=== PATIENT | male | born 1935 | race Caucasian/White ===

== ENCOUNTER 2017-06-01 07:44 | Day surgery (SDC) | payer MEDICARE, OTHER ==
[2017-05-27 15:39] VITALS: BMI 34.0
[~2017-06-01 07:44] MED LIST: LACTATED RINGERS 1,000 ML IV SCH; MOXIFLOXACIN HCL 0.5% DROPS 3 ML BTL OP ONE; TETRACAINE 0.5% OPHTH (PF) DROPS 4 ML BTL OP ONE; TIMOLOL 0.5% OPHTH SOLN (PF) 0.2 ML DROPERETTE OP ONE
[2017-06-01] MEDS: CYCLOPENTOLATE 1% OPHTH SOLN 2 ML BTL OP ONE ×2 (08:27→08:35)
[2017-06-01] MEDS: PHENYLEPHRINE 2.5% OPHTH DRP 2ML OP NR ×3 (08:28→08:37)
[2017-06-01] MEDS ORDERED: LIDOCAINE 1% 20 ML VIAL (10MG/ML) FOR IV START INTRADERMA ONE (08:55)
[2017-06-01 09:04] VITALS: TEMP 97.4
[2017-06-01 09:07] LABS: Glucose,Whole Blood 148 mg/dL (75-99)
[2017-06-01] MEDS ORDERED: MIDAZOLAM 2 MG/2 ML VIAL ONE (09:11)
[2017-06-01] MEDS ORDERED: fentaNYL (PF) 50 MCG/ML 2 ML AMP ONE (09:11)
[2017-06-01] MEDS ORDERED: BALANCED SALT IRRIG SOLN COMB2 15 ML IRRIG.SOLN INTRAOCULA ONE (09:16)
[2017-06-01] MEDS ORDERED: HYALURONATE SODIUM INTRAOCULAR 1 EACH SYRINGE (12MG/ML) INTRAOCULA ONE (09:16)
[2017-06-01] MEDS ORDERED: EPINEPHrine (PF) 1 MG/ML AMP MISCELLANE ONE (09:17)
[2017-06-01] MEDS ORDERED: LIDOCAINE 1% (PF) 10MG/ML VIAL SQ ONE (09:17)
[2017-06-01] MEDS ORDERED: EPINEPHrine (PF) 1 MG/ML AMP SQ ONE (09:17)
[2017-06-01] MEDS ORDERED: EPINEPHrine (PF) 0.3 ML in BALANCED SALT IRRIG SOLN COMB2 500 ML IRRIGATION ONE (09:25)
--- NOTE | 2017-06-01 09:43 | P.OP ---
Date of Procedure: 06/01/17 Preoperative Diagnosis: NS & CS & PSC Postoperative Diagnosis: same Procedure(s) Performed: PIOL, OS Implants: PCB00 23.00 Anesthesia: MAC Surgeon: Fausto Christensen Estimated Blood Loss (ml): 0 Pathology: none sent Condition: stable Disposition: same day Indications for Procedure: blurry vision Operative Findings: No complications Description of Procedure:
[2017-06-01 09:46] VITALS: RESP 18
[2017-06-01 10:09] VITALS: BP 129/60; PULSE 67
--- NOTE | 2017-06-02 13:47 | OP ---
OPERATIVE REPORT Date of Surgery: DATE OF SURGERY: 01 June 2017. PROCEDURE: Phacoemulsification of cataract and intraocular lens implant of the left eye. PREOPERATIVE DIAGNOSES: 1. Nuclear sclerosis. 2. Cortical sclerosis. 3. Posterior subcapsular cataract. POSTOPERATIVE DIAGNOSES: 1. Nuclear sclerosis. 2. Cortical sclerosis. 3. Posterior subcapsular cataract. 4. Intraoperative floppy iris syndrome. SURGEON: Dr. Fausto Christensen. ANESTHESIA: Topical. ESTIMATED BLOOD LOSS: None. SPECIMEN TAKEN: None. NARRATIVE: After obtaining the appropriate consent, the patient was brought to the operating room. There he was placed on cardiac monitoring, prepped and draped in the usual sterile manner. He was approached from his left temporal side and at the 5 o'clock position, a 1.1 mm stab blade was used to create a paracentesis port. Through this opening, a solution consisting of 1 part balanced salt solution, 1 part 1% Xylocaine MPF and 2 parts epinephrine 1:1000 MPF was instilled into the anterior chamber. It was realized at this point in time that further enlargement of the small pupil of about 4.5 mm was not going to open any further. Through the paracentesis, Amvisc was used to stabilize the anterior chamber. At the 3 o'clock position, a 2.5 mm keratome was used to create a self-sealing corneal flap incision. Through this opening, a Malyugin ring 7 mm in size was inserted on the pupil sphincter without difficulty. A cystatome was then introduced to begin a continuous tear capsulorrhexis which was completed using the Utrata forceps. Hydrodissection and hydrodelineation of the lens was accomplished with a balanced salt solution. Phacoemulsification lens utilizing phaco chop was accomplished in 26.05 seconds at 12% power. Additional lidocaine and epinephrine solution was instilled into the anterior chamber. This was followed by removal of the remaining cortex under irrigation and aspiration along with careful polishing of the posterior capsule in the capsule vacuum mode. Additional Amvisc was used to stabilize the capsular bag and an LATONYA PCB00 23.0 diopter posterior chamber intraocular lens was inserted into the bag without difficulty. The Malyugin ring was disinserted from the nasal side of the pupil and removed through the temporal incision. Irrigation and aspiration of the remaining viscoelastic from in and around the intraocular lens was accomplished without difficulty. The eye was then brought to normal intraocular pressures through the paracentesis port with the balanced salt solution. The eye was checked for watertight integrity. He then received 2 drops of 0.5% timolol followed by 2 drops of moxifloxacin and was lightly patched and shielded in the usual manner. There were no complications from the procedure. He tolerated the procedure well. He was returned to the outpatient recovery in good condition. MMADAM / ALONN: [id number] /
== END 2017-06-01 10:30 | disposition home or self-care (01) ==
LOC: OR 07:44
PROVIDERS: ATTEND Ophthalmology
DX: H25.12 Age-related nuclear cataract, left eye (principal); H25.012 Cortical age-related cataract, left eye; H25.042 Posterior subcapsular polar age-related cataract, left eye; H21.81 Floppy iris syndrome; E11.36 Type 2 diabetes mellitus with diabetic cataract; H52.13 Myopia, bilateral; H52.223 Regular astigmatism, bilateral; H52.4 Presbyopia; N40.0 Benign prostatic hyperplasia without lower urinary tract symptoms; Z79.84 Long term (current) use of oral hypoglycemic drugs; Z79.82 Long term (current) use of aspirin; Z79.899 Other long term (current) drug therapy; Z87.891 Personal history of nicotine dependence
CPT/HCPCS: 66982; C1780; J2250; J0171; J3010; J2001

== ENCOUNTER 2022-03-15 18:42 | Observation (INO) | payer MEDICARE ==
[2022-03-15 19:49] LABS: Glucose,Whole Blood 157 mg/dL (75-99)
--- NOTE | 2022-03-15 19:49 | ED ---
General Adult HPI - General Chief complaint: Chest Pain Stated complaint: ABN EKG Time Seen by Provider: 03/15/22 19:34 Source: patient, RN notes reviewed, old records reviewed Mode of arrival: ambulatory Limitations: no limitations - History of Present Illness Initial comments: 86-year-old male presents to the emergency Department with abnormal EKG and symptoms of chest pain and dizziness. Symptoms have been present for the past several days. He was seen by his primary care physician and sent to the emergency department for evaluation. He's had a vague chest discomfort, left- sided. And a sharp right upper chest pain which is worse with movement. He has had some mild dyspnea. No vomiting. He's had some nausea. He has no prior history of CAD. No fever. No cough. - Related Data Home Medications Medication Instructions Recorded Confirmed Aspirin 81 mg PO DAILY 05/27/17 06/01/17 Cholecalciferol [Vitamin D3] 50,000 unit PO WEEKLY 05/27/17 06/01/17 Naproxen Sodium [Aleve] 220 mg PO BID PRN 05/27/17 06/01/17 Tamsulosin HCl [Flomax] 0.4 mg PO DAILY 05/27/17 06/01/17 glipiZIDE [Glucotrol XL] 20 mg PO DAILY 05/27/17 06/01/17 metFORMIN HCL [Glucophage] 500 mg PO DAILY 05/27/17 06/01/17 Allergies Allergy/AdvReac Type Severity Reaction Status Date / Time No Known Allergies Allergy Verified 03/15/22 19:09 Review of Systems ROS Statement: Those systems with pertinent positive or pertinent negative responses have been documented in the HPI. ROS Other: All systems not noted in ROS Statement are negative. Past Medical History Past Medical History: Cancer, Diabetes Mellitus, Eye Disorder, Osteoarthritis (OA), Prostate Disorder Additional Past Medical History / Comment(s): hx. of cancerous colon polyp in 1999-didn't require surgery, has enlarged spleen- monitoring History of Any Multi-Drug Resistant Organisms: None Reported Past Surgical History: Orthopedic Surgery Additional Past Surgical History / Comment(s): colonoscopies, right cataract removed, repair of fx. right shoulder Past Anesthesia/Blood Transfusion Reactions: No Reported Reaction Past Psychological History: No Psychological Hx Reported Past Alcohol Use History: None Reported Past Drug Use History: None Reported - Past Family History Mother Family Medical History: No Reported History General Exam Limitations: no limitations General appearance: alert, in no apparent distress Head exam: Present: atraumatic, normocephalic Eye exam: Present: normal appearance, PERRL ENT exam: Present: normal exam Neck exam: Present: normal inspection. Absent: tenderness, meningismus Respiratory exam: Present: normal lung sounds bilaterally. Absent: respiratory distress, wheezes Cardiovascular Exam: Present: regular rate, normal rhythm GI/Abdominal exam: Present: soft. Absent: distended, tenderness, guarding, rebound Extremities exam: Present: normal inspection, normal capillary refill. Absent: pedal edema Neurological exam: Present: alert, oriented X3, CN II-XII intact. Absent: motor sensory deficit Psychiatric exam: Present: normal affect, normal mood Skin exam: Present: warm, dry, intact. Absent: cyanosis, diaphoretic Course Vital Signs 03/15/22 19:04 Temperature 98.6 F Pulse Rate 69 Respiratory 20 Rate Blood Pressure 122/63 O2 Sat by Pulse 97 Oximetry EKG Findings - EKG Comments: EKG Findings:: EKG: Sinus rhythm with first-degree AV block, intraventricular conduction delay rate of 69, UT interval 233, QRS duration 126, QTC 4:[address] segment elevation. Medical Decision Making - Medical Decision Making 86-year-old male who had presented from the primary care office with chest pain, lightheadedness. EKG is abnormal in the emergency department without an old EKG for comparison. He has an intraventricular conduction delay and first- degree AV block no ST segment elevation. Laboratory testing in the emergency Department is unremarkable. Chest x-rays negative for acute cardio pulmonary disease. Patient is given an aspirin. He would benefit from serial cardiac enzymes and telemetry. Case discussed with Dr. Keen, who will admit. - Lab Data Result diagrams: 03/15/22 19:50 03/15/22 19:50 Lab Results 03/15/22 03/15/22 03/15/22 Range/Units 19:46 19:50 19:50 WBC 8.1 (3.8-10.6) k/uL RBC 4.53 (4.30-5.90) m/uL Hgb 14.1 (13.0-17.5) gm/dL Hct 42.4 (39.0-53.0) % MCV 93.6 (80.0-100.0) fL MCH 31.0 (25.0-35.0) pg MCHC 33.2 (31.0-37.0) g/dL RDW 14.3 (11.5-15.5) % Plt Count 158 (150-450) k/uL MPV 7.4 Neutrophils % 75 % Lymphocytes % 18 % Monocytes % 5 % Eosinophils % 1 % Basophils % 0 % Neutrophils # 6.1 (1.3-7.7) k/uL Lymphocytes # 1.4 (1.0-4.8) k/uL Monocytes # 0.4 (0-1.0) k/uL Eosinophils # 0.0 (0-0.7) k/uL Basophils # 0.0 (0-0.2) k/uL Poikilocytosis Slight PT 11.2 (9.0-12.0) sec INR 1.0 (<1.2) APTT 28.1 (22.0-30.0) sec Sodium (137-145) mmol/L Potassium (3.5-5.1) mmol/L Chloride (98-107) mmol/L Carbon Dioxide (22-30) mmol/L Anion Gap mmol/L BUN (9-20) mg/dL Creatinine (0.66-1.25) mg/dL Est GFR (CKD-EPI)AfAm (>60 ml/min/1.73 sqM) Est GFR (CKD-EPI)NonAf (>60 ml/min/1.73 sqM) Glucose (74-99) mg/dL POC Glucose (mg/dL) 157 H (75-99) mg/dL POC Glu Baller Tender ID RondaNanoMarie Calcium (8.4-10.2) mg/dL Magnesium (1.6-2.3) mg/dL Total Bilirubin (0.2-1.3) mg/dL AST (17-59) U/L ALT (4-49) U/L Alkaline Phosphatase (38-126) U/L Troponin I (0.000-0.034) ng/mL Total Protein (6.3-8.2) g/dL Albumin (3.5-5.0) g/dL Lipase (23-300) U/L 03/15/22 03/15/22 Range/Units 19:50 19:50 WBC (3.8-10.6) k/uL RBC (4.30-5.90) m/uL Hgb (13.0-17.5) gm/dL Hct (39.0-53.0) % MCV (80.0-100.0) fL MCH (25.0-35.0) pg MCHC (31.0-37.0) g/dL RDW (11.5-15.5) % Plt Count (150-450) k/uL MPV Neutrophils % % Lymphocytes % % Monocytes % % Eosinophils % % Basophils % % Neutrophils # (1.3-7.7) k/uL Lymphocytes # (1.0-4.8) k/uL Monocytes # (0-1.0) k/uL Eosinophils # (0-0.7) k/uL Basophils # (0-0.2) k/uL Poikilocytosis PT (9.0-12.0) sec INR (<1.2) APTT (22.0-30.0) sec Sodium 138 (137-145) mmol/L Potassium 4.1 (3.5-5.1) mmol/L Chloride 108 H (98-107) mmol/L Carbon Dioxide 23 (22-30) mmol/L Anion Gap 7 mmol/L BUN 17 (9-20) mg/dL Creatinine 1.01 (0.66-1.25) mg/dL Est GFR (CKD-EPI)AfAm 78 (>60 ml/min/1.73 sqM) Est GFR (CKD-EPI)NonAf 67 (>60 ml/min/1.73 sqM) Glucose 157 H (74-99) mg/dL POC Glucose (mg/dL) (75-99) mg/dL POC Glu Baller Tender ID Calcium 9.0 (8.4-10.2) mg/dL Magnesium 2.0 (1.6-2.3) mg/dL Total Bilirubin 0.7 (0.2-1.3) mg/dL AST 24 (17-59) U/L ALT 19 (4-49) U/L Alkaline Phosphatase 103 (38-126) U/L Troponin I <0.012 (0.000-0.034) ng/mL Total Protein 7.0 (6.3-8.2) g/dL Albumin 3.9 (3.5-5.0) g/dL Lipase 115 (23-300) U/L Disposition Clinical Impression: Chest pain Disposition: ADMITTED IP TO THIS HOSP Condition: Stable Is patient prescribed a controlled substance at d/c from ED?: No Referrals: Siva Ren MD [Primary Care Provider] - 1-2 days Time of Disposition: 21:35
[2022-03-15 20:16] LABS: Basophils % (A) 0 %; Eosinophils % (A) 1 %; HCT 42.4 % (39.0-53.0); HGB 14.1 gm/dL (13.0-17.5); Lymphocytes # (A) 1.4 k/uL (1.0-4.8); Lymphocytes % (A) 18 %; MCHC 33.2 g/dL (31.0-37.0); MCV 93.6 fL (80.0-100.0); Mean Platelet Volume 7.4; Monocytes # (A) 0.4 k/uL (0-1.0); Monocytes % (A) 5 %; Neutrophils # (A) 6.1 k/uL (1.3-7.7); Neutrophils % (A) 75 %; Platelet Count 158 k/uL (150-450); Poikilocytosis Slight; RBC 4.53 m/uL (4.30-5.90); RDW 14.3 % (11.5-15.5); WBC 8.1 k/uL (3.8-10.6)
[2022-03-15 20:26] LABS: Albumin 3.9 g/dL (3.5-5.0); Potassium 4.1 mmol/L (3.5-5.1); Total Bilirubin 0.7 mg/dL (0.2-1.3)
[2022-03-15 20:29] LABS: Partial Thromboplastin Time 28.1 sec (22.0-30.0); Prothrombin Time 11.2 sec (9.0-12.0)
--- NOTE | 2022-03-15 20:58 | XR ---
EXAMINATION TYPE: XR chest 2V DATE OF EXAM: 03/15/2022 8:19 PM COMPARISON: None TECHNIQUE: XR chest 2V Frontal and lateral views of the chest. CLINICAL INDICATION:Male, 86 years old with history of Chest Pain; FINDINGS: Lungs/Pleura: Low lung volumes are present. There is no evidence of pleural effusion, focal consolida tion, or pneumothorax. Pulmonary vascularity: Unremarkable. Heart/mediastinum: Cardiomediastinal silhouette is unremarkable. Musculoskeletal: No acute osseous pathology. Dictation screw within the distal clavicle on the right. IMPRESSION: No acute cardiopulmonary disease/process.
[2022-03-15] MEDS ORDERED: ASPIRIN 325 MG TAB PO STA (21:32)
[2022-03-15] MEDS ORDERED: NALOXONE 0.4 MG/ML 1 ML VIAL IV PRN (21:32)
[2022-03-16] MEDS ORDERED: ATORVASTATIN 80 MG TAB PO SCH (01:14)
--- NOTE | 2022-03-16 01:14 | P.HPIM ---
History of Present Illness H&P Date: 03/15/22 The patient is an 86-year-old male with a PMH of type II DM and BPH who presents to the emergency room with complaints of chest discomfort, abdominal discomfort, and abnormal EKG. The patient reports that over the past 1-2 weeks, he has had a left-sided vague chest discomfort, with occasional bloating and heartburn, unable to quantify, with no alleviating her excess pitting features. He also reports pleuritic right-sided chest discomfort over the past 3-4 days without nausea, diaphoresis, palpitations. He reports mild exertional dyspnea. Denies cough, fever, chills, abdominal pain or diarrhea. EKG reveals sinus rhythm with first-degree AV block with a left anterior fascicular block and LVH at 69 bpm. Chest x-ray was unremarkable. Laboratory evaluation was remarkable for troponin of less than 0.012. Review of systems: Pertinent positives and negatives as discussed in HPI, a complete review of systems was performed and all other systems are negative. Physical examination: General: non toxic, no distress, appears at stated age, obese Derm: no unusual rashes/lesions, warm Head: atraumatic, normocephalic, symmetric Eyes: EOMI, no lid lag, anicteric sclera, pupils equal round reactive to light ENT: Nose and ears atraumatic Neck: No cervical lymphadenopathy, trachea midline, supple Mouth: no lip lesion, mucus membranes moist Cardiovascular: S1S2 reg, no murmur, positive dorsalis pedis pulse bilateral, no edema Lungs: CTA bilateral, no rhonchi, no rales, no accessory muscle use Abdominal: soft, nontender to palpation, no guarding Ext: muscle strength 5 out of 5 in all 4 extremities grossly, no gross muscle atrophy, no contractures, Neuro: CN II-XI grossly intact, no gross focal neuro deficits Psych: Alert, oriented, appropriate affect Assessment/plan Chest pain, rule out ACS -Cardiology consult -Cardiac monitoring -Trend troponin -Aspirin, statin Chronic conditions: Type II DM, BPH -Insulin sliding scale blood glucose monitoring -Continue with home meds DVT prophylaxis -Heparin subcu The patient is admitted with an anticipated less than 2 midnight stay for evaluation of chest pain. CODE STATUS: Full Code Discussed with: Patient Anticipated discharge date: in am Anticipated discharge place: Home Past Medical History Past Medical History: Cancer, Diabetes Mellitus, Eye Disorder, Osteoarthritis (OA), Prostate Disorder Additional Past Medical History / Comment(s): hx. of cancerous colon polyp in 1999-didn't require surgery, has enlarged spleen- monitoring History of Any Multi-Drug Resistant Organisms: None Reported Past Surgical History: Orthopedic Surgery Additional Past Surgical History / Comment(s): colonoscopies, right cataract removed, repair of fx. right shoulder Past Anesthesia/Blood Transfusion Reactions: No Reported Reaction Past Psychological History: No Psychological Hx Reported Smoking Status: Former smoker Past Alcohol Use History: None Reported Additional Past Alcohol Use History / Comment(s): quit drinking in 1982, quit smoking 35 yrs. ago, on & off smoked for 10 yrs. Past Drug Use History: None Reported - Past Family History Mother Family Medical History: Diabetes Mellitus Medications and Allergies Home Medications Medication Instructions Recorded Confirmed Type Tamsulosin HCl [Flomax] 0.4 mg PO HS 05/27/17 03/15/22 History glipiZIDE [Glucotrol XL] 20 mg PO DAILY 05/27/17 03/15/22 History Ergocalciferol (Vitamin D2) 1,250 mcg PO YU 03/15/22 03/15/22 History [Drisdol (50,000 Iu)] Allergies Allergy/AdvReac Type Severity Reaction Status Date / Time No Known Allergies Allergy Verified 03/15/22 21:34 Physical Exam Vitals: Vital Signs Temp Pulse Pulse Resp BP BP Pulse Ox 03/15/22 22:57 98.0 F 65 20 165/71 100 03/15/22 19:04 98.6 F 69 20 122/63 97 Intake and Output 03/15/22 03/15/22 03/16/22 14:59 22:59 06:59 Other: Weight 105.687 kg Results CBC & Chem 7: 03/15/22 19:50 03/15/22 19:50 Labs: Abnormal Lab Results - Last 24 Hours (Table) 03/15/22 03/15/22 Range/Units 19:46 19:50 Chloride 108 H (98-107) mmol/L Glucose 157 H (74-99) mg/dL POC Glucose (mg/dL) 157 H (75-99) mg/dL Thrombosis Risk Factor Assmnt - Choose All That Apply Each Factor Represents 1 point: Obesity (BMI >25) Each Risk Factor Represents 3 Points: Age 75 years or older Thrombosis Risk Factor Assessment Total Risk Factor Score: 4 Thrombosis Risk Factor Assessment Level: Moderate Risk
[2022-03-16 07:21] LABS: Glucose,Whole Blood 129 mg/dL (75-99)
[2022-03-16 07:40] VITALS: BP 131/74; PULSE 61; RESP 18; TEMP 97.9
[2022-03-16] MEDS ORDERED: HEPARIN SODIUM,PORCINE/PF 5,000 UNIT/0.5 ML SYRINGE SQ SCH (08:00)
[2022-03-16] MEDS ORDERED: CAFFEINE CITRATE 60 MG/3 ML VIAL IV PRN (08:34)
[2022-03-16] MEDS ORDERED: AMINOPHYLLINE 500 MG/20 ML VIAL IV PRN (08:34)
[2022-03-16] MEDS ORDERED: REGADENOSON 0.4 MG/5 ML SYRINGE IV PRN (08:34)
[2022-03-16] MEDS ORDERED: SODIUM CHLORIDE 0.9% 1,000 ML IV STA (08:35)
--- NOTE | 2022-03-16 09:33 | P.CRDCN ---
History of Present Illness History of present illness: This is a 86 year old male with a past medical history of Diabetes and BPH. 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 We have been asked to see in consultation for chest pain. Patient presents to the ER sent in from his PCP secondary to chest pain and abnormal EKG. He states for about 1 week has been having left sided pressure and tightness, with associated shortness of breath, bilateral arm numbness and tingling. He states it comes and goes, he has been having these episodes every day for the past week. He has some relief with aspirin. His shortness of breath is aggravated by activity. He denies any palpitations, lightheadedness, dizziness, diaphoresis, nausea or vomiting. He denies any history of CAD, KS, Stroke, hypertension. Quit smoking and drinking alcohol 40 years ago. His brother did have a KS was 90. Patient seen and examined at bedside, his chest pain has resolved. He is asymptomatic at this time. DIAGNOSTICS EKG reveals sinus rhythm, first degree AV block, intraventricular conduction delay, LVH, T-wave inversions in lead aVL. No acute ST or T-wave abnormalities. Repeat EKG this morning revealed sinus rhythm with left bundle branch block. No prior EKGs to compare. Telemetry tracings indicate sinus rhythm, heart rate in the 50s-60s Chest xray no acute cardiopulmonary process Laboratory reviewed, CBC unremarkable, troponin negative 3, sodium 138, potassium 4.1, BUN 17, serum creatinine 1.0, magnesium 2.0. Current home medications include glipizide, Flomax, vitamin D REVIEW OF SYSTEMS At the time of my exam: CONSTITUTIONAL: Denies fever or chills. CARDIOVASCULAR: Denies chest pain, shortness of breath, orthopnea, PND or palpitations. RESPIRATORY: Denies cough. GASTROINTESTINAL: Denies abdominal pain, diarrhea, constipation, nausea or vomiting. MUSCULOSKELETAL: Denies myalgias. NEUROLOGIC: Denies numbness, tingling, headache or weakness. ENDOCRINE: Denies fatigue, weight change, polydipsia or polyurina. GENITOURINARY: Denies burning, hematuria or urgency with micturation. HEMATOLOGIC: Denies history of anemia or bleeding. PHYSICAL EXAMINATION Blood pressure 131/74, heart rate 61, afebrile, saturations 100% on room air CONSTITUTIONAL: No apparent distress. HEENT: Head is normocephalic. Pupils are equal, round. Sclerae anicteric. Mucous membranes of the mouth are moist. No JVD. No carotid bruit. CHEST EXAMINATION: Lungs are clear to auscultation. No chest wall tenderness is noted on palpation or with deep breathing. HEART EXAMINATION: Regular rate and rhythm. S1, S2 heard. Systolic murmur at apex 1/6. No gallops or rub. ABDOMEN: Soft, nontender. Positive bowel sounds. EXTREMITIES: 2+ peripheral pulses, no lower extremity edema and no calf tenderness. SKIN: warm, dry NEUROLOGIC EXAMINATION: Patient is awake, alert and oriented x3. ASSESSMENT Chest pain, atypical, acute coronary syndrome has been ruled out Type 2 diabetes BPH PLAN An acute coronary event has been ruled out with no EKG evidence of ischemia and negative cardiac enzymes. Obtain 2D echocardiogram and doppler study to assess cardiac structure and function. Perform Lexiscan stress test to assess for stress induced cardiac ischemia. If abnormal will consider and discuss coronary angiography. Stress test is negative okay to discharge from cardiology perspective, and follow up outpatient. Thank you kindly for this consultation. Nurse practitioner note has been reviewed by physician. Signing provider agrees with the documented findings, assessment, and plan of care. Past Medical History Past Medical History: Cancer, Diabetes Mellitus, Eye Disorder, Osteoarthritis (OA), Prostate Disorder Additional Past Medical History / Comment(s): hx. of cancerous colon polyp in 1999-didn't require surgery, has enlarged spleen- monitoring History of Any Multi-Drug Resistant Organisms: None Reported Past Surgical History: Orthopedic Surgery Additional Past Surgical History / Comment(s): colonoscopies, right cataract removed, repair of fx. right shoulder Past Anesthesia/Blood Transfusion Reactions: No Reported Reaction Past Psychological History: No Psychological Hx Reported Smoking Status: Former smoker Past Alcohol Use History: None Reported Additional Past Alcohol Use History / Comment(s): quit drinking in 1982, quit smoking 35 yrs. ago, on & off smoked for 10 yrs. Past Drug Use History: None Reported - Past Family History Mother Family Medical History: Diabetes Mellitus Medications and Allergies Home Medications Medication Instructions Recorded Confirmed Type Tamsulosin HCl [Flomax] 0.4 mg PO HS 05/27/17 03/15/22 History glipiZIDE [Glucotrol XL] 20 mg PO DAILY 05/27/17 03/15/22 History Ergocalciferol (Vitamin D2) 1,250 mcg PO YU 03/15/22 03/15/22 History [Drisdol (50,000 Iu)] Allergies Allergy/AdvReac Type Severity Reaction Status Date / Time No Known Allergies Allergy Verified 03/15/22 21:34 Physical Exam Vitals: Vital Signs Temp Pulse Pulse Resp BP BP Pulse Ox 03/16/22 07:00 97.9 F 61 18 131/74 100 03/16/22 02:10 97.7 F 62 20 116/54 99 03/15/22 22:57 98.0 F 65 20 165/71 100 03/15/22 19:04 98.6 F 69 20 122/63 97 Intake and Output 03/15/22 03/16/22 03/16/22 22:59 06:59 14:59 Other: Voiding Method Toilet # Voids 1 Weight 105.687 kg Results 03/15/22 19:50 03/15/22 19:50 Cardiac Enzymes 03/15/22 03/15/22 03/16/22 Range/Units 19:50 19:50 00:16 AST 24 (17-59) U/L Troponin I <0.012 <0.012 (0.000-0.034) ng/mL 03/16/22 Range/Units 02:45 AST (17-59) U/L Troponin I <0.012 (0.000-0.034) ng/mL Coagulation 03/15/22 Range/Units 19:50 PT 11.2 (9.0-12.0) sec APTT 28.1 (22.0-30.0) sec CBC 03/15/22 Range/Units 19:50 WBC 8.1 (3.8-10.6) k/uL RBC 4.53 (4.30-5.90) m/uL Hgb 14.1 (13.0-17.5) gm/dL Hct 42.4 (39.0-53.0) % Plt Count 158 (150-450) k/uL Comprehensive Metabolic Panel 03/15/22 Range/Units 19:50 Sodium 138 (137-145) mmol/L Potassium 4.1 (3.5-5.1) mmol/L Chloride 108 H (98-107) mmol/L Carbon Dioxide 23 (22-30) mmol/L BUN 17 (9-20) mg/dL Creatinine 1.01 (0.66-1.25) mg/dL Glucose 157 H (74-99) mg/dL Calcium 9.0 (8.4-10.2) mg/dL AST 24 (17-59) U/L ALT 19 (4-49) U/L Alkaline Phosphatase 103 (38-126) U/L Total Protein 7.0 (6.3-8.2) g/dL Albumin 3.9 (3.5-5.0) g/dL Current Medications Generic Name Dose Route Start Last Admin Trade Name Freq PRN Reason Stop Dose Admin Aspirin 81 mg 03/16/22 09:00 Aspirin 81 Mg PO DAILY [facility] Atorvastatin Calcium 80 mg 03/16/22 01:14 03/16/22 01:18 Atorvastatin 80 Mg Tab PO Not Given HS [facility] Heparin Sodium (Porcine) 5,000 unit 03/16/22 08:00 Heparin Sodium,Porcine/Pf 5,000 Unit/0.5 Ml Syringe SQ Q8HR LISA Insulin Aspart 0 unit 03/16/22 07:30 Insulin Aspart (Novolog) 100 Unit/Ml Vial SQ ACHS LISA Protocol Naloxone HCl 0.2 mg 03/15/22 21:32 Naloxone 0.4 Mg/Ml 1 Ml Vial IV Q2M PRN Opioid Reversal Tamsulosin HCl 0.4 mg 03/16/22 21:00 Tamsulosin 0.4 Mg Cap.Er.24h PO HS [facility] Intake and Output 03/15/22 03/16/22 03/16/22 22:59 06:59 14:59 Other: Voiding Method Toilet # Voids 1 Weight 105.687 kg 03/15/22 19:50 03/15/22 19:50
[2022-03-16] MEDS: INSULIN ASPART (NovoLOG) 100 UNIT/ML VIAL SQ SCH ×2 (11:16→12:25)
[2022-03-16 12:08] LABS: Glucose,Whole Blood 136 mg/dL (75-99)
--- NOTE | 2022-03-16 12:21 | NM ---
EXAMINATION TYPE: NM stress lexiscan cardiolite DATE OF EXAM: 03/16/2022 COMPARISON: NONE HISTORY: 86-year-old male chest pain TECHNIQUE: After the intravenous administration of 10.1 mCi Tc 99m Sestamibi - Cardiolite resting SP ECT images acquired 45 minutes post injection. The patient received 0.4mg Lexiscan, 25 mCi Tc 99m Sestamibi - Stress images obtained 30 minutes post injection FINDINGS: Review of stress and rest SPECT images demonstrates a large area of fixed perfusion defect of the inf erior wall. No discrete reversibility is seen. Gated analysis shows limited augmentation of the infer ior wall, estimated left ventricular ejection fraction of 53 %. TID is calculated at 0.93, within no rmal limits. IMPRESSION: 1. Large area of fixed perfusion defect of the inferior wall. Both diaphragmatic attenuation artifact and large area of old infarct are differential considerations. Further clinical correlation recommen ded. 2. Aside from this area, no suspicious reversibility is seen. 3. Borderline diminished LVEF of 53%.
[2022-03-16] MEDS: ASPIRIN 81 MG PO SCH ×2 (12:25→12:30)
--- NOTE | 2022-03-16 12:46 | CA ---
Transthoracic Echo Report Name: Jonnie Cabrera Age: 86 Gender: M : 1935 Exam Date: 03/16/2022 08:52 Exam Location: [facility] Ht (in): 71 Wt (lb): 233 Ordering Physician: Juanita Pedraza Attending/Referring Phys: Neon Sign Maker Latosha Jacob RDCS Procedure CPT: Indications: Chest Pain Cardiac Hx: No cardiac hx Technical Quality: Technically difficult study Contrast 1: Lumason Total Dose (mL): 1 Contrast 2: Total Dose (mL): MEASUREMENTS (Male / Female) Normal Values 2D ECHO LV Diastolic Diameter PLAX 4.5 cm 4.2 - 5.9 / 3.9 - 5.3 cm LV Systolic Diameter PLAX 2.0 cm IVS Diastolic Thickness 0.8 cm 0.6 - 1.0 / 0.6 - 0.9 cm LVPW Diastolic Thickness 1.1 cm 0.6 - 1.0 / 0.6 - 0.9 cm LV Relative Wall Thickness 0.4 LVOT Diameter 1.8 cm M-MODE Aortic Root Diameter MM 3.3 cm LA Systolic Diameter MM 3.6 cm LA Ao Ratio MM 1.1 MV E Point Septal Separation 0.7 cm AV Cusp Separation MM 1.3 cm DOPPLER AV Peak Velocity 212.8 cm/s AV Peak Gradient 18.1 mmHg AV Mean Velocity 160.9 cm/s AV Mean Gradient 11.2 mmHg AV Velocity Time Integral 55.7 cm AI Peak Velocity 177.7 cm/s AI Peak Gradient 12.6 mmHg AI Pressure Half Time 987.7 ms LVOT Peak Velocity 105.5 cm/s LVOT Peak Gradient 4.5 mmHg AV Area Cont Eq pk 1.2 cm??? MV Area PHT 2.7 cm??? MR Peak Velocity 90.0 cm/s MR Peak Gradient 3.2 mmHg Mitral E Point Velocity 111.1 cm/s Mitral A Point Velocity 132.8 cm/s Mitral E to A Ratio 0.8 MV Deceleration Time 284.1 ms TR Peak Velocity 173.0 cm/s TR Peak Gradient 12.0 mmHg Right Ventricular Systolic Press 16.3 mmHg FINDINGS Left Ventricle Normal Left ventricular size, wall thickness, systolic function with no obvious regional wall motion abnormalities. Normal Left ventricular diastolic filling pattern. Left ventricular ejection fraction is estimated at 55 %. Right Ventricle The right ventricle is normal in size and function. Right Atrium The right atrium is normal in size. Left Atrium The left atrium is normal in size. Mitral Valve Structurally normal mitral valve without significant stenosis or prolapse. There is trace mitral regurgitation. Aortic Valve There is mild aortic regurgitation. Mild aortic stenosis with a peak gradient of 18 mmHg and a mean gradient of 11 mmHg. Tricuspid Valve Structurally normal tricuspid valve without significant stenosis. Pulmonary artery systolic pressure is normal. Trace tricuspid regurgitation. Pulmonic Valve Structurally normal pulmonic valve without significant stenosis. There is no pulmonic regurgitation. Pericardium Normal pericardium without effusion. Aorta Normal aortic root dimension. CONCLUSIONS LV size and systolic function is normal. This is a technically difficult study. Echo contrast was used to optimize the image quality. There is no wall motion of vanity and ejection fraction is about 55%. Doppler exam is suboptimal there appears to be a mild gradient across the aortic valve. No pericardial effusion Previewed by: Dr. Pippa Burks MD (Electronically Signed) Final Date: 16 March 2022 12:45
--- NOTE | 2022-03-16 12:47 | P.PN ---
Subjective Progress Note Date: 03/16/22 Patient is doing well today. Plan for Lexiscan today, and was treated reversible ischemia in the inferior aspect of the heart. Patient will be admitted to inpatient.Gen: awake, alert HEENT: normocephalic, atraumatic, good hearing acuity, moist mucous membranes Resp: good air exchange, breathing comfortably with no accessory muscle use CVS: good distal perfusion x 4, GI: soft, NTTP, ND : no SPT, no CVAT, franco catheter not present MSK: no pitting edema, no clubbing Neuro: non-focal, moving all extremities Psych: cooperative, euthymic mood Assessment/plan: Chest pain -Cardiology consult -Cardiac monitoring -Trend troponin -Aspirin, statin -Lexiscan stress test demonstrated reversible ischemia Chronic conditions: Type II DM, BPH -Insulin sliding scale blood glucose monitoring -Continue with home meds DVT prophylaxis -Heparin subcu The patient is admitted with an anticipated less than 2 midnight stay for evaluation of chest pain. CODE STATUS: Full Code Discussed with: Patient Anticipated discharge date: in am Anticipated discharge place: Home Objective - Vital Signs Vital signs: Vital Signs Temp 97.9 F 03/16/22 07:00 Pulse 61 03/16/22 07:00 Resp 18 03/16/22 07:00 BP 131/74 03/16/22 07:00 Pulse Ox 100 03/16/22 07:00 FiO2 Intake & Output 03/15/22 03/16/22 03/16/22 18:59 06:59 18:59 Weight 105.687 kg Other: Voiding Method Toilet # Voids 1 - Labs CBC & Chem 7: 03/15/22 19:50 03/15/22 19:50 Labs: Abnormal Lab Results - Last 24 Hours (Table) 03/15/22 03/15/22 03/16/22 Range/Units 19:46 19:50 07:20 Chloride 108 H (98-107) mmol/L Glucose 157 H (74-99) mg/dL POC Glucose (mg/dL) 157 H 129 H (75-99) mg/dL 03/16/22 Range/Units 12:06 Chloride (98-107) mmol/L Glucose (74-99) mg/dL POC Glucose (mg/dL) 136 H (75-99) mg/dL
--- NOTE | 2022-03-16 13:48 | P.DS ---
Providers Date of admission: 03/15/22 21:32 Expected date of discharge: 03/16/22 Attending physician: Anitha Keen MD Consults: 03/15/22 21:32 Consult Physician Routine Consulting Provider: Jarvis De León Consult Reason/Comments: CP Do you want consulting provider notified?: Yes Primary care physician: Siva [facility] Course: Chest pain, rule out ACS Type II DM HLD BPH The patient is an 86-year-old male with a PMH of type II DM and BPH who presented to the emergency room with complaints of chest discomfort, abdominal discomfort, and abnormal EKG. Pt was afebrile, HDS. CBC, chemistries, LFTs, Coags, and troponins x 3 were unremarkable. EKG reveals sinus rhythm with first-degree AV block with a left anterior fascicular block and LVH at 69 bpm. Chest x-ray was unremarkable. Patient was admitted for observation with cardiology consult. Cardiology recommended echo and lexiscan stress test, which were both negative for reversible ischemia, though it did show fixed defect related to old infarct vs diaphragmatic attenuation artifact. Pt was discharged with PCP and cardiology f/u with continuation of ASA and statin. Gen: awake, alert HEENT: normocephalic, atraumatic, good hearing acuity, moist mucous membranes Resp: good air exchange, breathing comfortably with no accessory muscle use CVS: good distal perfusion x 4, GI: soft, NTTP, ND : no SPT, no CVAT, franco catheter not present MSK: no pitting edema, no clubbing Neuro: non-focal, moving all extremities Psych: cooperative, euthymic mood Patient Condition at Discharge: Good Plan - Discharge Summary New Discharge Prescriptions: New Aspirin 81 mg PO DAILY #30 tab Atorvastatin [Lipitor] 80 mg PO HS #30 tab Continue glipiZIDE [Glucotrol XL] 20 mg PO DAILY Tamsulosin HCl [Flomax] 0.4 mg PO HS Ergocalciferol (Vitamin D2) [Drisdol (50,000 Iu)] 1,250 mcg PO YU Discharge Medication List Tamsulosin HCl [Flomax] 0.4 mg PO HS 05/27/17 [History] glipiZIDE [Glucotrol XL] 20 mg PO DAILY 05/27/17 [History] Ergocalciferol (Vitamin D2) [Drisdol (50,000 Iu)] 1,250 mcg PO YU 03/15/22 [History] Aspirin 81 mg PO DAILY #30 tab 03/16/22 [Rx] Atorvastatin [Lipitor] 80 mg PO HS #30 tab 03/16/22 [Rx] Follow up Appointment(s)/Referral(s): Siva Ren MD [Primary Care Provider] - 1-2 days Discharge Disposition: HOME SELF-CARE
--- NOTE | 2022-03-16 18:52 | CA ---
Lexiscan Nuclear Stress Test Report Name: Jonnie Cabrera Exam Date: 03/16/2022 10:42 Exam Location: [facility] Ht (in): 69 Wt (lb): 233 BSA: 2.20 Ordering Phys: Juanita Pedraza Referring Phys: ARIC,, Technologist: DYLAN,, Age: 86 Gender: M : 1935 Procedure CPT: Indications: Reflex order-Stress test ICD-10 Codes: Patient History: Chest Tightness and abnormal EKG Medications: Meds past 24 hrs: Pretest Chest Pain: STRESS TEST Lexiscan Protocol Exercise Duration (min:sec): 01:[address] Depressions (mm): Angina Score: Seaman Score: Resting HR (bpm): 63 Peak HR (bpm): 77 Resting BP (mmHg): 129 / 60 Peak BP (mmHg): 128 / 59 MPHR: 134 Target HR: 114 % MPHR: 57 METS: 1.0 Total Dose: Peak Dose: Atropine: Double Product: 9856 BP Response: Stress Termination: INFUSION COMPLETE Stress Symptoms: NO SYMPTOMS Stress Summary: Baseline EKG revealed normal sinus rhythm without significant ST-T changes. There was poor R-wave progression in precordial leads. With Lexiscan administration heart rate changes of 60 due to 74 bpm and the blood pressure did not change much it was around 128/60. By EKG criteria this is a unremarkable Lexiscan stress test. The nuclear scan results which are more pertinent will be reported by the radiologist ECG ANALYSIS Resting ECG: Stress ECG: CONCLUSIONS Baseline EKG revealed normal sinus rhythm without significant ST-T changes. There was poor R-wave progression in precordial leads. With Lexiscan administration heart rate changes of 60 due to 74 bpm and the blood pressure did not change much it was around 128/60. By EKG criteria this is a unremarkable Lexiscan stress test. The nuclear scan results which are more pertinent will be reported by the radiologist Dr. Pippa Burks MD (Electronically Signed) Final Date: 16 March 2022 18:52
[2022-03-16] MEDS ORDERED: TAMSULOSIN 0.4 MG CAP.ER.24H PO SCH (21:00)
== END 2022-03-16 14:23 | disposition home or self-care (01) ==
LOC: EC 18:42 → 6NMEDSUR 21:32
PROVIDERS: ADMIT Internal Medicine; ATTEND Internal Medicine
DX: R07.89 Other chest pain (principal); R94.31 Abnormal electrocardiogram [ECG] [EKG]; E11.9 Type 2 diabetes mellitus without complications; E78.5 Hyperlipidemia, unspecified; N40.0 Benign prostatic hyperplasia without lower urinary tract symptoms; R10.9 Unspecified abdominal pain; R12 Heartburn; R14.0 Abdominal distension (gaseous); R07.81 Pleurodynia; R06.09 Other forms of dyspnea; R06.02 Shortness of breath; R20.0 Anesthesia of skin; R20.2 Paresthesia of skin; R42 Dizziness and giddiness; R11.0 Nausea; R06.00 Dyspnea, unspecified; I44.0 Atrioventricular block, first degree; I44.4 Left anterior fascicular block; I35.0 Nonrheumatic aortic (valve) stenosis; M19.90 Unspecified osteoarthritis, unspecified site; R16.1 Splenomegaly, not elsewhere classified; E66.9 Obesity, unspecified; Z68.34 Body mass index [BMI] 34.0-34.9, adult; Z85.038 Personal history of other malignant neoplasm of large intestine; Z87.891 Personal history of nicotine dependence; Z79.84 Long term (current) use of oral hypoglycemic drugs; Z79.899 Other long term (current) drug therapy; Z79.82 Long term (current) use of aspirin; Z83.3 Family history of diabetes mellitus
CPT/HCPCS: 96372; 99285; 36415; 93005; 93017; 80053; 83690; 83735; 84484 ×2; 85025; 85610; 85730; 71046; 78452; G0378 ×2; C8929; A9500; J2785; Q9950; J1644; 93306

== ENCOUNTER 2025-01-18 10:38 | Observation (INO) | payer MEDICARE ==
--- NOTE | 2025-01-18 11:45 | ED ---
General Adult HPI - General Chief complaint: Weakness Stated complaint: Body Weakness Time Seen by Provider: 01/18/25 10:50 Source: patient, family, RN notes reviewed, old records reviewed Mode of arrival: ambulatory Limitations: no limitations - History of Present Illness Initial comments: This is an 89-year-old male who presents to the emergency department complaining that he is too weak to get up and help assist to get out of bed or out of the wheelchair. states that she is unable to take care of him at home anymore. Patient went up to the wound center for wounds on his feet and they sent him down to the emergency department because they did not feel safe sending him home. is in agreement she is no longer able to take care of him. Patient is somewhat reluctant to go to rehab but he is considering at this time. Patient denies any recent fever chills or cough or patient has any recent falls per patient denies chest pain difficulty breathing or shortness of breath. Patient [place] any abdominal pain patient has nausea vomiting or diarrhea. - Related Data Home Medications Medication Instructions Recorded Confirmed Tamsulosin HCl [Flomax] 0.4 mg PO HS 05/27/17 03/15/22 glipiZIDE [Glucotrol XL] 20 mg PO DAILY 05/27/17 03/15/22 Ergocalciferol (Vitamin D2) 1,250 mcg PO YU 03/15/22 03/15/22 [Drisdol (50,000 Iu)] Previous Rx's Medication Instructions Recorded Aspirin 81 mg PO DAILY #30 tab 03/16/22 Atorvastatin [Lipitor] 80 mg PO HS #30 tab 03/16/22 Allergies Allergy/AdvReac Type Severity Reaction Status Date / Time No Known Allergies Allergy Verified 01/18/25 10:51 Review of Systems ROS Statement: Those systems with pertinent positive or pertinent negative responses have been documented in the HPI. ROS Other: All systems not noted in ROS Statement are negative. Past Medical History Past Medical History: Cancer, Diabetes Mellitus, Eye Disorder, Osteoarthritis (OA), Prostate Disorder Additional Past Medical History / Comment(s): hx. of cancerous colon polyp in -didn't require surgery, has enlarged spleen- monitoring History of Any Multi-Drug Resistant Organisms: None Reported Past Surgical History: Orthopedic Surgery Additional Past Surgical History / Comment(s): colonoscopies, right cataract removed, repair of fx. right shoulder Past Anesthesia/Blood Transfusion Reactions: No Reported Reaction Past Psychological History: No Psychological Hx Reported Smoking Status: Former smoker Past Alcohol Use History: None Reported Past Drug Use History: None Reported - Past Family History Mother Family Medical History: Diabetes Mellitus General Exam - General Exam Comments Initial Comments: GENERAL: Patient is well-developed and well-nourished. Patient is nontoxic and well- hydrated and is in no acute distress. ENT: Neck is soft and supple. No significant lymphadenopathy is noted. Oropharynx is clear. Moist mucous membranes. Neck has full range of motion without eliciting any pain. EYES: The sclera were anicteric and conjunctiva were pink and moist. Extraocular movements were intact and pupils were equal round and reactive to light. Eyelids were unremarkable. PULMONARY: Unlabored respirations. Good breath sounds bilaterally. No audible rales rhonchi or wheezing was noted. CARDIOVASCULAR: There is a regular rate and rhythm without any murmurs gallops or rubs. ABDOMEN: Soft and nontender with normal bowel sounds. SKIN: Skin is clear with no lesions or rashes and otherwise unremarkable. NEUROLOGIC: Patient is alert and oriented x3. Cranial nerves II through XII are grossly intact. Motor and sensory are also intact. Normal speech, volume and content. Symmetrical smile. MUSCULOSKELETAL: Normal extremities with adequate strength and full range of motion. No lower extremity swelling or edema. No calf tenderness. LYMPHATICS: No significant lymphadenopathy is noted PSYCHIATRIC: Normal psychiatric evaluation. Limitations: no limitations Course Vital Signs 01/18/25 01/18/25 01/18/25 10:45 11:29 12:44 Temperature 97.5 F L 97.3 F L 97.5 F L Pulse Rate 65 66 63 Respiratory 18 18 18 Rate Blood Pressure 133/71 123/63 126/62 O2 Sat by Pulse 100 100 99 Oximetry 01/18/25 14:23 Temperature Pulse Rate 73 Respiratory 18 Rate Blood Pressure 135/61 O2 Sat by Pulse 98 Oximetry Medical Decision Making - Medical Decision Making EKG is interpreted by myself. EKG is a sinus rhythm at 66 bpm NV was 216 QRS is 129 QT interval is 416 QTc is 430. Patient's EKG shows no ST segment elevation. Patient does have a left bundle branch block Was pt. sent in by a medical professional or institution (, PA, BUNDLE CLERK, urgent care, hospital, or [facility]...) When possible be specific @ -No Did you speak to anyone other than the patient for history (EMS, parent, family, police, friend...)? What history was obtained from this source @ -No Did you review nursing and triage notes (agree or disagree)? Why? @ -I reviewed and agree with nursing and triage notes Were old charts reviewed (outside hosp., previous admission, EMS record, old EKG, old radiological studies, urgent care reports/EKG's, [facility] records)? Report findings @ -No old charts were reviewed Differential Diagnosis? @ -Differential Weakness: Hypoglycemia, shock, sepsis, hyponatremia, anemia, infection, TX, ETOH, adverse medicine reaction, overdose, stroke, this is not meant to be an all-inclusive list. EKG interpreted by me (3pts min.). @ -As above X-rays interpreted by me (1pt min.). @ -Chest x-ray shows no acute dramality CT interpreted by me (1pt min.). @ -None done U/S interpreted by me (1pt. min.). @ -None done What testing was considered but not performed or refused? (CT, X-rays, U/S, labs)? Why? @ -None What meds were considered but not given or refused? Why? @ -None Did you discuss the management of the patient with other professionals (professionals i.e. , PA, BUNDLE CLERK, lab, RT, psych nurse, social services, manufacturer's service representative, teacher, dispatch officer, shelter case manager)? Give summary @ -[facility] Was smoking cessation discussed for >3mins.? @ -No Was critical care preformed (if so, how long)? @ -No Were there social determinants of health that impacted care today? How? (Homelessness, low income, unemployed, alcoholism, drug addiction, transportation, low edu. Level, literacy, decrease access to med. care, [facility], rehab)? @ -No Was there de-escalation of care discussed even if they declined (Discuss DNR or withdrawal of care, Hospice)? DNR status @ -No What co-morbidities impacted this encounter? (DM, HTN, Smoking, COPD, CAD, Cancer, CVA, ARF, Chemo, Hep., AIDS, mental health diagnosis, sleep apnea, morbid obesity)? @ -None Was patient admitted / discharged? Hospital course, mention meds given and route, prescriptions, significant lab abnormalities, going to OR and other pe rtinent info. @ -Patient was unable to get up out of the bed without great assistance from the staff. Patient was unsafe to go home and the agreed she was unable to take care of her so the [facility] Undiagnosed new problem with uncertain prognosis? @ -No Drug Therapy requiring intensive monitoring for toxicity (Heparin, Nitro, Insulin, Cardizem)? @ -No Were any procedures done? @ -No Diagnosis/symptom? @ -Weakness Acute, or Chronic, or Acute on Chronic? @ -Acute Uncomplicated (without systemic symptoms) or Complicated (systemic symptoms)? @ -Complicated Side effects of treatment? @ -No Exacerbation, Progression, or Severe Exacerbation? @ -No Poses a threat to life or bodily function? How? (Chest pain, USA, TX, pneumonia, PE, COPD, DKA, ARF, appy, cholecystitis, CVA, Diverticulitis, Homicidal, Suicidal, threat to staff... and all critical care pts) @ -Yes this could lead to a fall and significant injury - Lab Data Result diagrams: 01/18/25 11:46 01/18/25 11:46 Lab Results 01/18/25 01/18/25 01/18/25 Range/Units 11:46 11:46 11:46 WBC 5.66 (4.50-10.00) 10*3/uL RBC 3.77 L (4.40-5.60) 10*6/uL Hgb 12.5 L (13.0-17.0) g/dL Hct 35.6 L (39.6-50.0) % MCV 94.4 (80.0-97.0) fL MCH 33.2 H (27.0-32.0) pg MCHC 35.1 (32.0-37.0) g/dL Plt Count 144 (140-440) 10*3/uL MPV 9.5 (9.5-12.2) fL Immature Gran % (Auto) 0.2 % Neutrophils % 71.8 % Lymphocytes % 18.9 % Monocytes % 8.0 % Eosinophils % 0.9 % Basophils % 0.2 % Immature Gran # 0.01 (0.00-0.04) 10*3/uL Neutrophils # 4.07 (1.80-7.70) 10*3/uL Lymphocytes # 1.07 (0.90-5.00) 10*3/uL Monocytes # 0.45 (0.20-1.00) 10*3/uL Eosinophils # 0.05 (0.04-0.35) 10*3/uL Basophils # 0.01 (0.00-0.10) 10*3/uL Sodium 137 (137-145) mmol/L Potassium 4.0 (3.5-5.1) mmol/L Chloride 105 (98-107) mmol/L Carbon Dioxide 26 (22-30) mmol/L Anion Gap 6 mmol/L BUN 24 H (9-20) mg/dL Creatinine 1.09 (0.66-1.25) mg/dL Est GFR (CKD-EPI)AfAm 69 (>60 ml/min/1.73 sqM) Est GFR (CKD-EPI)NonAf 60 (>60 ml/min/1.73 sqM) Glucose 122 H (74-99) mg/dL Plasma Lactic Acid Artie 1.7 (0.7-2.0) mmol/L Calcium 9.1 (8.4-10.2) mg/dL Magnesium 2.1 (1.6-2.3) mg/dL Total Bilirubin 0.8 (0.2-1.3) mg/dL AST 24 (17-59) U/L ALT 14 (4-49) U/L Alkaline Phosphatase 88 (38-126) U/L Troponin I (0.000-0.034) ng/mL Total Protein 6.9 (6.3-8.2) g/dL Albumin 3.6 (3.5-5.0) g/dL Urine Color Urine Appearance (Clear) Urine pH (5.0-8.0) Ur Specific [place] (1.001-1.035) Urine Protein (Negative) Urine Glucose (UA) (Negative) Urine Ketones (Negative) Urine Blood (Negative) Urine Nitrite (Negative) Urine Bilirubin (Negative) Urine Urobilinogen (<2.0) mg/dL Ur Leukocyte Esterase (Negative) Urine RBC (0-5) /hpf Urine WBC (0-5) /hpf Ur Squamous Epith Cells (0-4) /hpf Hyaline Casts (0-2) /lpf Urine Mucus (None) /hpf 01/18/25 01/18/25 Range/Units 11:46 13:02 WBC (4.50-10.00) 10*3/uL RBC (4.40-5.60) 10*6/uL Hgb (13.0-17.0) g/dL Hct (39.6-50.0) % MCV (80.0-97.0) fL MCH (27.0-32.0) pg MCHC (32.0-37.0) g/dL Plt Count (140-440) 10*3/uL MPV (9.5-12.2) fL Immature Gran % (Auto) % Neutrophils % % Lymphocytes % % Monocytes % % Eosinophils % % Basophils % % Immature Gran # (0.00-0.04) 10*3/uL Neutrophils # (1.80-7.70) 10*3/uL Lymphocytes # (0.90-5.00) 10*3/uL Monocytes # (0.20-1.00) 10*3/uL Eosinophils # (0.04-0.35) 10*3/uL Basophils # (0.00-0.10) 10*3/uL Sodium (137-145) mmol/L Potassium (3.5-5.1) mmol/L Chloride (98-107) mmol/L Carbon Dioxide (22-30) mmol/L Anion Gap mmol/L BUN (9-20) mg/dL Creatinine (0.66-1.25) mg/dL Est GFR (CKD-EPI)AfAm (>60 ml/min/1.73 sqM) Est GFR (CKD-EPI)NonAf (>60 ml/min/1.73 sqM) Glucose (74-99) mg/dL Plasma Lactic Acid Artie (0.7-2.0) mmol/L Calcium (8.4-10.2) mg/dL Magnesium (1.6-2.3) mg/dL Total Bilirubin (0.2-1.3) mg/dL AST (17-59) U/L ALT (4-49) U/L Alkaline Phosphatase (38-126) U/L Troponin I <0.012 (0.000-0.034) ng/mL Total Protein (6.3-8.2) g/dL Albumin (3.5-5.0) g/dL Urine Color Yellow Urine Appearance Clear (Clear) Urine pH 5.5 (5.0-8.0) Ur Specific [place] 1.017 (1.001-1.035) Urine Protein Negative (Negative) Urine Glucose (UA) Negative (Negative) Urine Ketones Negative (Negative) Urine Blood Trace H (Negative) Urine Nitrite Negative (Negative) Urine Bilirubin Negative (Negative) Urine Urobilinogen <2.0 (<2.0) mg/dL Ur Leukocyte Esterase Negative (Negative) Urine RBC 4 (0-5) /hpf Urine WBC 2 (0-5) /hpf Ur Squamous Epith Cells <1 (0-4) /hpf Hyaline Casts 1 (0-2) /lpf Urine Mucus Rare H (None) /hpf Disposition Clinical Impression: Generalized weakness Disposition: ADMITTED IP TO THIS [facility] Referrals: Siva Ren MD [Primary Care Provider] - 01/28/25 1:00 pm (Office will contact if anything becomes available sooner. ) Forms: Community Resources, Help In The Home, Personal Banking Paralegal Time of Disposition: 14:30
[2025-01-18] MEDS: KETOROLAC 15 MG/ML 1 ML VIAL IVP STA (11:52)
[2025-01-18 11:56] LABS: Basophils # (A) 0.01 10*3/uL (0.00-0.10); Basophils % (A) 0.2 %; Eosinophils # (A) 0.05 10*3/uL (0.04-0.35); Eosinophils % (A) 0.9 %; HCT 35.6 % (39.6-50.0); HGB 12.5 g/dL (13.0-17.0); Lymphocytes # (A) 1.07 10*3/uL (0.90-5.00); Lymphocytes % (A) 18.9 %; MCH 33.2 pg (27.0-32.0); MCHC 35.1 g/dL (32.0-37.0); MCV 94.4 fL (80.0-97.0); Mean Platelet Volume 9.5 fL (9.5-12.2); Monocytes # (A) 0.45 10*3/uL (0.20-1.00); Neutrophils # (A) 4.07 10*3/uL (1.80-7.70); Neutrophils % (A) 71.8 %; Platelet Count 144 10*3/uL (140-440); RBC 3.77 10*6/uL (4.40-5.60); RDW 14.4 % (11.5-14.5); WBC 5.66 10*3/uL (4.50-10.00)
[2025-01-18 12:17] LABS: ALT 14 U/L (4-49); AST 24 U/L (17-59); African American GFR (CKD) 69 (>60 ml/min/1.73 sqM); Albumin 3.6 g/dL (3.5-5.0); Alkaline Phosphatase 88 U/L (38-126); Anion Gap 6 mmol/L; Blood Urea Nitrogen 24 mg/dL (9-20); Calcium 9.1 mg/dL (8.4-10.2); Carbon Dioxide 26 mmol/L (22-30); Chloride 105 mmol/L (98-107); Glucose 122 mg/dL (74-99); Magnesium 2.1 mg/dL (1.6-2.3); Non-African American GFR(CKD) 60 (>60 ml/min/1.73 sqM); Sodium 137 mmol/L (137-145); Total Bilirubin 0.8 mg/dL (0.2-1.3); Total Protein 6.9 g/dL (6.3-8.2)
--- NOTE | 2025-01-18 12:21 | XR ---
EXAMINATION TYPE: XR chest 2V DATE OF EXAM: 01/18/2025 12:07 PM COMPARISON: Chest radiographs from 03/15/2022 TECHNIQUE: XR chest 2V Frontal and lateral views of the chest. CLINICAL INDICATION:Male, 89 years old with history of Weakness; FINDINGS: Lungs/Pleura: There is no evidence of pleural effusion, focal consolidation, or pneumothorax. Pulmonary vascularity: Unremarkable. Heart/mediastinum: Cardiomediastinal silhouette is prominent in size. Atherosclerotic calcifications are seen in the aorta. Musculoskeletal: Multiple level degenerative disc disease changes seen throughout the spine. Postsurg ical changes in the right coracoid region with fixation screw. IMPRESSION: No acute cardiopulmonary disease/process. [facility], , 01/18/2025 12:19 PM
[2025-01-18 13:10] LABS: Appearance,Urine Clear (Clear); Bilirubin,Urine Negative (Negative); Blood,Urine Trace (Negative); Color,Urine Yellow; Glucose,Urine (UA) Negative (Negative); Hyaline Casts,Urine 1 /lpf (0-2); Ketones,Urine Negative (Negative); Leukocyte Esterase,Urine Negative (Negative); Mucus,Urine Rare /hpf; Nitrite,Urine Negative (Negative); PH, Urine 5.5 (5.0-8.0); Protein,Urine Negative (Negative); RBC,Urine 4 /hpf (0-5); Specific Gravity,Urine 1.017 (1.001-1.035); Squamous Epithelial Cell,Urine <1 /hpf (0-4); Urobilinogen,Urine <2.0 mg/dL (<2.0); WBC,Urine 2 /hpf (0-5)
[2025-01-18] MEDS: SODIUM CHLORIDE 0.9% 1,000 ML IV ONE (14:41)
[2025-01-18] MEDS ORDERED: DEXTROSE 50% SYRINGE 50 ML IVP PRN ×2 (16:03)
[2025-01-18 17:22] LABS: Glucose,Whole Blood 126 mg/dL (70-110)
[2025-01-18] MEDS: INSULIN LISPRO (HumaLOG) 100 UNIT/ML 10 mL VL SQ SCH (17:28)
[2025-01-18 20:15] LABS: Glucose,Whole Blood 168 mg/dL (70-110)
[2025-01-18] MEDS: TAMSULOSIN 0.4 MG CAP.ER.24H PO SCH (20:34)
--- NOTE | 2025-01-18 21:07 | P.HPIM ---
History of Present Illness H&P Date: 01/18/25 Chief Complaint: Generalized weakness Patient is a 89-year-old male with a known history of diabetes type 2 insulin- dependent, osteoarthritis, prostate disorder, prior history of smoking and chronic venous stasis changes in the legs and right leg wound presents to ER due to generalized weakness unable to get up and move around. Patient needs help to get out of bed and out of the wheelchair. Patient's states that she is unable to take care of him at home anymore. Patient went up to wound care center for wounds on his right lower extremity and they sent him down to ER because he did not feel safe sending him home. Patient initially was reluctant to go to rehab but is considering now. No complaints of fever or chills. No complaints of chest pain or shortness of breath. No nausea vomiting or blood pain or diarrhea. No dizziness or lightheadedness. Denied any recent illnesses. Patient does have chronic bilateral lower extremity swelling and venous stasis changes. Chest x-ray showed no acute cardiopulmonary process. EKG showed sinus rhythm with first-degree AV block. Laboratory data showed WBC 5.6 hemoglobin 12.5 platelets 144 MCV 94.4 Sodium 137 potassium 4.0 chloride 105 bicarb is 26 BUN 24 and creatinine 1.09 blood sugar 122 liver enzymes are not elevated troponin x 1 negative Urinalysis is negative for infection. Review of Systems Constitutional: Patient denies any fever or chills . Generalized weakness unable to get out of bed. Abdomen: Patient denied nausea vomiting and diarrhea and abdominal pain. Cardiovascular: Patient denies any chest pain or short of breath no palpitations. Respiratory: patient denied any cough or sputum production. No shortness of breath Neurologic: Patient denied any numbness or tingling. no headache. Musculoskeletal: Patient denies any complaints of joint swelling or deformity. Skin: Negative Psychiatric: Negative Endocrine: No heat or cold intolerance. No recent weight gain. Genitourinary: No dysuria or hematuria. All other 14 point ROS negative except the above Past Medical History Past Medical History: Cancer, Diabetes Mellitus, Eye Disorder, Osteoarthritis (OA), Prostate Disorder Additional Past Medical History / Comment(s): hx. of cancerous colon polyp in 1999-didn't require surgery, has enlarged spleen- monitoring History of Any Multi-Drug Resistant Organisms: None Reported Past Surgical History: Orthopedic Surgery Additional Past Surgical History / Comment(s): colonoscopies, right cataract removed, repair of fx. right shoulder Past Anesthesia/Blood Transfusion Reactions: No Reported Reaction Past Psychological History: No Psychological Hx Reported Smoking Status: Former smoker Past Alcohol Use History: None Reported Past Drug Use History: None Reported - Past Family History Mother Family Medical History: Diabetes Mellitus Medications and Allergies Home Medications Medication Instructions Recorded Confirmed Type Tamsulosin HCl [Flomax] 0.4 mg PO HS 05/27/17 01/18/25 History glipiZIDE [Glucotrol XL] 10 mg PO DAILY 05/27/17 01/18/25 History Azo Bladder Control 1 tab PO DAILY 01/18/25 01/18/25 History Ergocalciferol [Vitamin D2 (1250 1,250 mcg PO YU 01/18/25 01/18/25 History Mcg = 87213 Iu)] Furosemide [Lasix] 20 mg PO DAILY 01/18/25 01/18/25 History Allergies Allergy/AdvReac Type Severity Reaction Status Date / Time No Known Allergies Allergy Verified 01/18/25 15:05 Physical Exam Vitals: Vital Signs Temp Pulse Resp BP Pulse Ox 01/18/25 15:36 97.7 F 67 16 120/68 99 01/18/25 14:23 73 18 135/61 98 01/18/25 12:44 97.5 F L 63 18 126/62 99 01/18/25 11:29 97.3 F L 66 18 123/63 100 01/18/25 10:45 97.5 F L 65 18 133/71 100 Intake and Output 01/18/25 01/18/25 01/18/25 06:59 14:59 22:59 Other: Weight 99.79 kg PHYSICAL EXAMINATION: Patient is sitting in the chair. no acute distress, awake alert and oriented.. HEENT: Normocephalic. Neck is supple. Pupils reactive. Nostrils clear. Oral cavity is moist. Neck reveals no JVD, carotid bruits, or thyromegaly. CHEST EXAMINATION: Trachea is central. Symmetrical expansion. Lung cueto clear to auscultation and percussion. CARDIAC: Normal S1, S2 with no gallops. No murmurs ABDOMEN: Soft. Bowel sounds normal. No organomegaly. No abdominal bruits. Extremities: Bilateral lower extremity 2+ edema with venous stasis and right low er extremity 4 x 4 centimeter venous stasis ulcer with a granulomatous base. No discharge.. No clubbing or cyanosis Neurologically awake, alert, oriented x3 able to move all extremities. no focal deficits noted Skin: No rash or skin lesions. Psychiatric: Coperative. Nonsuicidal Musculoskeletal: No joint swelling or deformity. Results CBC & Chem 7: 01/18/25 11:46 01/18/25 11:46 Labs: Abnormal Lab Results - Last 24 Hours (Table) 01/18/25 01/18/25 01/18/25 Range/Units 11:46 11:46 13:02 RBC 3.77 L (4.40-5.60) 10*6/uL Hgb 12.5 L (13.0-17.0) g/dL Hct 35.6 L (39.6-50.0) % MCH 33.2 H (27.0-32.0) pg BUN 24 H (9-20) mg/dL Glucose 122 H (74-99) mg/dL Urine Blood Trace H (Negative) Urine Mucus Rare H (None) /hpf Assessment and Plan Assessment: Generalized weakness and medical debility unable to take himself Chronic bilateral lower extremity swelling due to venous stasis and Right lower extremity venous stasis ulcer Diabetes type 2 [id number] with mild hyperglycemia Osteoarthritis Rash resolved Prior history of smoking DVT prophylax with heparin subcu Plan: Patient was given IV fluids and Toradol dose x 1 in the ER. Currently patient is able to sit in recliner and patient needs assistance to get out of chair. PT OT was consulted. Insulin sliding scale for blood sugar control. Follow-up TSH B12 folate and A1c level. Wound care and dressing changes per right lower extremity venous stasis ulcer. Continue to follow closely. Patient may need rehab transfer. Time with Patient: Greater than 30
[2025-01-18] MEDS: HEPARIN SODIUM,PORCINE 5,000 UNIT/ML 1 ML VIAL SQ SCH (23:26)
[2025-01-19 07:33] LABS: Glucose,Whole Blood 112 mg/dL (70-110)
[2025-01-19] MEDS: FUROSEMIDE 20 MG TAB PO SCH (08:18)
[2025-01-19] MEDS ORDERED: AZO BLADDER CONTROL PO SCH (09:00)
[2025-01-19 11:36] LABS: Blood Urea Nitrogen 23.4 mg/dL (9.0-27.0); Calcium 8.4 mg/dL (8.7-10.3); Carbon Dioxide 23.1 mmol/L (21.6-31.8); Chloride 107 mmol/L (96-109); Glucose 73 mg/dL (70-110); Potassium 4.3 mmol/L (3.5-5.5); Sodium 140 mmol/L (135-145)
[2025-01-19 11:51] LABS: Vitamin B12 <150.0 pg/mL (200.0-944.0)
[2025-01-19 12:36] LABS: Glucose,Whole Blood 156 mg/dL (70-110)
[2025-01-19 17:29] LABS: Glucose,Whole Blood 119 mg/dL (70-110)
[2025-01-19 20:41] LABS: Glucose,Whole Blood 143 mg/dL (70-110)
--- NOTE | 2025-01-19 21:47 | P.PN ---
Subjective Progress Note Date: 01/19/25 Patient is a 89-year-old male with a known history of diabetes type 2 insulin- dependent, osteoarthritis, prostate disorder, prior history of smoking and chronic venous stasis changes in the legs and right leg wound presents to ER due to generalized weakness unable to get up and move around. Patient needs help to get out of bed and out of the wheelchair. Patient's states that she is unable to take care of him at home anymore. Patient went up to wound care center for wounds on his right lower extremity and they sent him down to ER because he did not feel safe sending him home. Patient initially was reluctant to go to rehab but is considering now. No complaints of fever or chills. No complaints of chest pain or shortness of breath. No nausea vomiting or blood pain or diarrhea. No dizziness or lightheadedness. Denied any recent illnesses. Patient does have chronic bilateral lower extremity swelling and venous stasis changes. Chest x-ray showed no acute cardiopulmonary process. EKG showed sinus rhythm with first-degree AV block. Laboratory data showed WBC 5.6 hemoglobin 12.5 platelets 144 MCV 94.4 Sodium 137 potassium 4.0 chloride 105 bicarb is 26 BUN 24 and creatinine 1.09 blood sugar 122 liver enzymes are not elevated troponin x 1 negative Urinalysis is negative for infection. 01/19/2025 Patient is sitting in the chair. Awake alert and oriented. No complaints of chest pain or shortness of breath. Leg swelling is better today. Patient also feels better with decreased weakness. No complaints of fever or chills. No other acute overnight issues. Wound care is being done. Patient will be continued on PT OT. Laboratories show sodium 140 potassium 4.3 chloride 107 bicarb is 23.1 BUN 23.4 and creatinine 1.2 calcium 8.4 vitamin B12 less than 150 and TSH 3.9 Current medications reviewed. Objective - Vital Signs Vital signs: Vital Signs Temp 98.1 F 01/19/25 19: Pulse 75 01/19/25: Resp 16 01/19/25 19:25 BP 144/74 01/19/25 19:25 Pulse Ox 100 01/19/25 19:25 FiO2 Intake & Output 01/19/25 01/19/25 01/20/25 06:59 18:59 06:59 Intake Total 1180 1080 Output Total 600 400 200 Balance 580 680 -200 Intake: Oral 1180 1080 Output: Urine 600 400 200 Other: Voiding Method Urinal Urinal # Voids 2 # Bowel Movements 1 - Exam PHYSICAL EXAMINATION: Patient is sitting in the chair. no acute distress, awake alert and oriented.. HEENT: Normocephalic. Neck is supple. Pupils reactive. Nostrils clear. Oral cavity is moist. Neck reveals no JVD, carotid bruits, or thyromegaly. CHEST EXAMINATION: Trachea is central. Symmetrical expansion. Lung cueto clear to auscultation and percussion. CARDIAC: Normal S1, S2 with no gallops. No murmurs ABDOMEN: Soft. Bowel sounds normal. No organomegaly. No abdominal bruits. Extremities: Bilateral lower extremity 2+ edema with venous stasis and right lower extremity 4 x 4 centimeter venous stasis ulcer with a granulomatous base. No discharge.. No clubbing or cyanosis Neurologically awake, alert, oriented x3 able to move all extremities. no focal deficits noted Skin: No rash or skin lesions. Psychiatric: Coperative. Nonsuicidal Musculoskeletal: No joint swelling or deformity. - Labs CBC & Chem 7: 01/18/25 11:46 01/19/25 05:23 Labs: Abnormal Lab Results - Last 24 Hours (Table) 01/19/25 01/19/25 01/19/25 Range/Units 05:23 07:17 12:17 Est GFR (CKD-EPI) 58 L (>=60) POC Glucose (mg/dL) 112 H 156 H (70-110) mg/dL Calcium 8.4 L (8.7-10.3) mg/dL Vitamin B12 <150.0 L (200.0-944.0) pg/mL 01/19/25 01/19/25 Range/Units 17:26 20:39 Est GFR (CKD-EPI) (>=60) POC Glucose (mg/dL) 119 H 143 H (70-110) mg/dL Calcium (8.7-10.3) mg/dL Vitamin B12 (200.0-944.0) pg/mL Assessment and Plan Assessment: Generalized weakness and medical debility unable to take himself Chronic bilateral lower extremity swelling due to venous stasis and Right lower extremity venous stasis ulcer Vitamin B12 deficiency Diabetes type 2 [id number] with mild hyperglycemia Osteoarthritis Rash resolved Prior history of smoking DVT prophylax with heparin subcu Plan: Patient was given IV fluids and Toradol dose x 1 in the ER. Currently patient is able to sit in recliner and patient needs assistance to get out of chair. PT OT was consulted. Insulin sliding scale for blood sugar control. B12 level is low. TSH within normal notes. A1c 5.4. Wound care and dressing changes per right lower extremity venous stasis ulcer. Continue to follow closely. Patient may need rehab transfer. Time with Patient: Greater than 30
[2025-01-19] MEDS: CYANOCOBALAMIN 500 MCG TAB PO SCH (22:26)
[2025-01-20] MEDS: ERGOCALCIFEROL 1,250 MCG (50,000 IU) CAPSULE PO SCH (09:30)
[2025-01-20] MEDS: glipiZIDE 5 MG TAB PO SCH (09:30)
[2025-01-20] MEDS: CYANOCOBALAMIN 1,000 MCG/ML 1 ML VIAL IM SCH (09:32)
[2025-01-20 12:00] LABS: Glucose,Whole Blood 130 mg/dL (70-110)
[2025-01-20] MEDS: HYDROcodone/APAP 5-325MG 1 EACH TAB PO SCH (13:53)
[2025-01-20 17:09] LABS: Glucose,Whole Blood 111 mg/dL (70-110)
[2025-01-20 20:21] LABS: Glucose,Whole Blood 177 mg/dL (70-110)
[2025-01-21 07:20] LABS: Glucose,Whole Blood 80 mg/dL (70-110)
[2025-01-21] MEDS: NYSTATIN 100,000 UNIT/GM POWD 15 GM TOPICAL SCH (08:28)
[2025-01-21 09:09] LABS: Basophils # (A) 0.01 X 10*3/uL (0.00-0.10); Basophils % (A) 0.2 %; Eosinophils # (A) 0.09 X 10*3/uL (0.04-0.35); Eosinophils % (A) 1.6 %; HCT 32.7 % (39.6-50.0); HGB 11.3 g/dL (13.0-17.0); Lymphocytes # (A) 1.05 X 10*3/uL (0.90-5.00); Lymphocytes % (A) 19.2 %; MCH 33.1 pg (27.0-32.0); MCHC 34.6 g/dL (32.0-37.0); MCV 95.9 FL (80.0-97.0); Mean Platelet Volume 10.5 FL (9.5-12.2); Monocytes # (A) 0.46 X 10*3/uL (0.20-1.00); Monocytes % (A) 8.4 %; NRBC Per 100 WBC 0 X 10*3/uL (0.00-0.01); Neutrophils # (A) 3.85 X 10*3/uL (1.80-7.70); Neutrophils % (A) 70.2 %; Platelet Count 126 X 10*3/uL (140-440); RBC 3.41 X 10*6/uL (4.40-5.60); RDW 14.6 % (11.5-14.5); WBC 5.48 X 10*3/uL (4.50-10.00)
[2025-01-21 09:23] LABS: BUN/Creat Ratio 18.73 Ratio (12.00-20.00); Blood Urea Nitrogen 20.6 mg/dL (9.0-27.0); Calcium 8.4 mg/dL (8.7-10.3); Carbon Dioxide 24.8 mmol/L (21.6-31.8); Chloride 106 mmol/L (96-109); Glucose 68 mg/dL (70-110); Potassium 4.5 mmol/L (3.5-5.5); Sodium 138 mmol/L (135-145)
[2025-01-21 12:27] LABS: Glucose,Whole Blood 97 mg/dL (70-110)
--- NOTE | 2025-01-21 14:14 | P.PN ---
Subjective Progress Note Date: 01/20/25 Patient is a 89-year-old male with a known history of diabetes type 2 insulin- dependent, osteoarthritis, prostate disorder, prior history of smoking and chronic venous stasis changes in the legs and right leg wound presents to ER due to generalized weakness unable to get up and move around. Patient needs help to get out of bed and out of the wheelchair. Patient's states that she is unable to take care of him at home anymore. Patient went up to wound care center for wounds on his right lower extremity and they sent him down to ER because he did not feel safe sending him home. Patient initially was reluctant to go to rehab but is considering now. No complaints of fever or chills. No complaints of chest pain or shortness of breath. No nausea vomiting or blood pain or diarrhea. No dizziness or lightheadedness. Denied any recent illnesses. Patient does have chronic bilateral lower extremity swelling and venous stasis changes. Chest x-ray showed no acute cardiopulmonary process. EKG showed sinus rhythm with first-degree AV block. Laboratory data showed WBC 5.6 hemoglobin 12.5 platelets 144 MCV 94.4 Sodium 137 potassium 4.0 chloride 105 bicarb is 26 BUN 24 and creatinine 1.09 blood sugar 122 liver enzymes are not elevated troponin x 1 negative Urinalysis is negative for infection. 01/19/2025 Patient is sitting in the chair. Awake alert and oriented. No complaints of chest pain or shortness of breath. Leg swelling is better today. Patient also feels better with decreased weakness. No complaints of fever or chills. No other acute overnight issues. Wound care is being done. Patient will be continued on PT OT. Laboratories show sodium 140 potassium 4.3 chloride 107 bicarb is 23.1 BUN 23.4 and creatinine 1.2 calcium 8.4 vitamin B12 less than 150 and TSH 3.9 01/20/2025 Patient is sitting in the chair. Awake alert and oriented. No complaints of chest pain or shortness of breath. Bilateral lower extremity swelling is improved. Wound care was done. No complaints of dizziness or lightheadedness. Pain is controlled as well. PT OT to see him tomorrow. Laboratory data reviewed. Patient is being continued on B12 supplementation. No other acute overnight issues. Current medications reviewed. Objective - Vital Signs Vital signs: Vital Signs Temp 97.4 F L 01/20/25 07:19 Pulse 78 01/20/25 07:19 Resp 18 01/20/25 07:19 BP 144/76 01/20/25 07:19 Pulse Ox 97 01/20/25 07:19 FiO2 Intake & Output 01/19/25 01/20/25 01/20/25 18:59 06:59 18:59 Intake Total 1080 590 Output Total 400 1000 Balance 680 -410 Intake: Oral 1080 590 Output: Urine 400 1000 Other: Voiding Method Urinal # Voids 2 1 # Bowel Movements 1 - Exam PHYSICAL EXAMINATION: Patient is sitting in the chair. no acute distress, awake alert and oriented.. HEENT: Normocephalic. Neck is supple. Pupils reactive. Nostrils clear. Oral cavity is moist. Neck reveals no JVD, carotid bruits, or thyromegaly. CHEST EXAMINATION: Trachea is central. Symmetrical expansion. Lung cueto clear to auscultation and percussion. CARDIAC: Normal S1, S2 with no gallops. No murmurs ABDOMEN: Soft. Bowel sounds normal. No organomegaly. No abdominal bruits. Extremities: Bilateral lower extremity 2+ edema with venous stasis and right lower extremity 4 x 4 centimeter venous stasis ulcer with a granulomatous base. No discharge.. No clubbing or cyanosis Neurologically awake, alert, oriented x3 able to move all extremities. no focal deficits noted Skin: No rash or skin lesions. Psychiatric: Coperative. Nonsuicidal Musculoskeletal: No joint swelling or deformity. - Labs CBC & Chem 7: 01/21/25 05:14 01/21/25 05:14 Labs: Abnormal Lab Results - Last 24 Hours (Table) 01/19/25 01/19/25 01/19/25 Range/Units 05:23 12:17 17:26 POC Glucose (mg/dL) 156 H 119 H (70-110) mg/dL Vitamin B12 <150.0 L (200.0-944.0) pg/mL 01/19/25 Range/Units 20:39 POC Glucose (mg/dL) 143 H (70-110) mg/dL Vitamin B12 (200.0-944.0) pg/mL Assessment and Plan Assessment: Generalized weakness and medical debility unable to take himself Chronic bilateral lower extremity swelling due to venous stasis and Right lower extremity venous stasis ulcer Vitamin B12 deficiency Diabetes type 2 [id number] with mild hyperglycemia Osteoarthritis Rash resolved Prior history of smoking DVT prophylax with heparin subcu Plan: Patient was given IV fluids and Toradol dose x 1 in the ER. Currently patient is able to sit in recliner and patient needs assistance to get out of chair. PT OT was consulted. Insulin sliding scale for blood sugar control. B12 level is low. Continue with supplementation. TSH within normal notes. A1c 5.4. Wound care and dressing changes per right lower extremity venous stasis ulcer. Continue to follow closely. Pending PT OT evaluation.
[2025-01-21 17:25] LABS: Glucose,Whole Blood 111 mg/dL (70-110)
[2025-01-21 19:13] VITALS: RESP 16
[2025-01-21 20:04] LABS: Glucose,Whole Blood 159 mg/dL (70-110)
--- NOTE | 2025-01-21 23:27 | P.PN ---
Subjective Progress Note Date: 01/21/25 Patient is a 89-year-old male with a known history of diabetes type 2 insulin- dependent, osteoarthritis, prostate disorder, prior history of smoking and chronic venous stasis changes in the legs and right leg wound presents to ER due to generalized weakness unable to get up and move around. Patient needs help to get out of bed and out of the wheelchair. Patient's states that she is unable to take care of him at home anymore. Patient went up to wound care center for wounds on his right lower extremity and they sent him down to ER because he did not feel safe sending him home. Patient initially was reluctant to go to rehab but is considering now. No complaints of fever or chills. No complaints of chest pain or shortness of breath. No nausea vomiting or blood pain or diarrhea. No dizziness or lightheadedness. Denied any recent illnesses. Patient does have chronic bilateral lower extremity swelling and venous stasis changes. Chest x-ray showed no acute cardiopulmonary process. EKG showed sinus rhythm with first-degree AV block. Laboratory data showed WBC 5.6 hemoglobin 12.5 platelets 144 MCV 94.4 Sodium 137 potassium 4.0 chloride 105 bicarb is 26 BUN 24 and creatinine 1.09 blood sugar 122 liver enzymes are not elevated troponin x 1 negative Urinalysis is negative for infection. 01/19/2025 Patient is sitting in the chair. Awake alert and oriented. No complaints of chest pain or shortness of breath. Leg swelling is better today. Patient also feels better with decreased weakness. No complaints of fever or chills. No other acute overnight issues. Wound care is being done. Patient will be continued on PT OT. Laboratories show sodium 140 potassium 4.3 chloride 107 bicarb is 23.1 BUN 23.4 and creatinine 1.2 calcium 8.4 vitamin B12 less than 150 and TSH 3.9 01/20/2025 Patient is sitting in the chair. Awake alert and oriented. No complaints of chest pain or shortness of breath. Bilateral lower extremity swelling is improved. Wound care was done. No complaints of dizziness or lightheadedness. Pain is controlled as well. PT OT to see him tomorrow. Laboratory data reviewed. Patient is being continued on B12 supplementation. No other acute overnight issues. 01/21/2025 Patient is currently sitting in the chair. Awake alert and oriented. No cough or sputum production. No febrile. Bilateral leg swelling is better. Patient is able to walk in the hallway but could not get out of the bed. PT OT is following. Patient may need rehab transfer. Laboratory data showed WBC 5.4 hemoglobin 11.3 and platelets 126. Other laboratory data reviewed. Patient is being continued on B12 supplementation. Continue with hypoglycemic medications and pain management. Current medications reviewed. Objective - Vital Signs Vital signs: Vital Signs Temp 98.4 F 01/21/25 19:13 Pulse 69 01/21/25 19:13 Resp 16 01/21/25 19:13 BP 138/69 01/21/25 19:13 Pulse Ox 99 01/21/25 19:13 FiO2 Intake & Output 01/21/25 01/21/25 01/22/25 06:59 18:59 06:59 Intake Total 590 1080 Output Total 600 200 100 Balance -10 880 -100 Intake: Oral 590 1080 Output: Urine 600 200 100 Other: Voiding Method Urinal Toilet Urinal # Voids 1 - Exam PHYSICAL EXAMINATION: Patient is sitting in the chair. no acute distress, awake alert and oriented.. HEENT: Normocephalic. Neck is supple. Pupils reactive. Nostrils clear. Oral cavity is moist. Neck reveals no JVD, carotid bruits, or thyromegaly. CHEST EXAMINATION: Trachea is central. Symmetrical expansion. Lung cueto clear to auscultation and percussion. CARDIAC: Normal S1, S2 with no gallops. No murmurs ABDOMEN: Soft. Bowel sounds normal. No organomegaly. No abdominal bruits. Extremities: Bilateral lower extremity 2+ edema with venous stasis and right lower extremity 4 x 4 centimeter venous stasis ulcer with a granulomatous base. No discharge.. No clubbing or cyanosis Neurologically awake, alert, oriented x3 able to move all extremities. no focal deficits noted Skin: No rash or skin lesions. Psychiatric: Coperative. Nonsuicidal Musculoskeletal: No joint swelling or deformity. - Labs CBC & Chem 7: 01/21/25 05:14 01/21/25 05:14 Labs: Abnormal Lab Results - Last 24 Hours (Table) 01/21/25 01/21/25 01/21/25 Range/Units 05:14 05:14 17:24 RBC 3.41 L (4.40-5.60) X 10*6/uL Hgb 11.3 L (13.0-17.0) g/dL Hct 32.7 L (39.6-50.0) % MCH 33.1 H (27.0-32.0) pg RDW 14.6 H (11.5-14.5) % Plt Count 126 L (140-440) X 10*3/uL Glucose 68 L (70-110) mg/dL POC Glucose (mg/dL) 111 H (70-110) mg/dL Calcium 8.4 L (8.7-10.3) mg/dL 01/21/25 Range/Units 20:03 RBC (4.40-5.60) X 10*6/uL Hgb (13.0-17.0) g/dL Hct (39.6-50.0) % MCH (27.0-32.0) pg RDW (11.5-14.5) % Plt Count (140-440) X 10*3/uL Glucose (70-110) mg/dL POC Glucose (mg/dL) 159 H (70-110) mg/dL Calcium (8.7-10.3) mg/dL Assessment and Plan Assessment: Generalized weakness and medical debility unable to take himself Chronic bilateral lower extremity swelling due to venous stasis and Right lower extremity venous stasis ulcer Vitamin B12 deficiency Diabetes type 2 [id number] with mild hyperglycemia Osteoarthritis Rash resolved Prior history of smoking DVT prophylax with heparin subcu Plan: Patient was given IV fluids and Toradol dose x 1 in the ER. Currently patient is able to sit in recliner and patient needs assistance to get out of chair. PT OT was consulted. Insulin sliding scale for blood sugar control. B12 level is low. Continue with supplementation. TSH within normal notes. A1c 5.4. Wound care and dressing changes per right lower extremity venous stasis ulcer. Continue to follow closely. Pending PT OT evaluation.
[2025-01-22 07:27] LABS: Glucose,Whole Blood 103 mg/dL (70-110)
[2025-01-22 12:18] LABS: Glucose,Whole Blood 101 mg/dL (70-110)
[2025-01-22 12:22] VITALS: BP 105/58; PULSE 68; TEMP 98.1
--- NOTE | 2025-01-22 13:01 | P.DS ---
Providers Date of admission: 01/18/25 14:33 Expected date of discharge: 01/22/25 Attending physician: Elizabeth Andre Primary care physician: Siva Ren [facility] Course: Discharge diagnosis Generalized weakness and medical debility unable to take himself Chronic bilateral lower extremity swelling due to venous stasis and Right lower extremity venous stasis ulcer Vitamin B12 deficiency Diabetes type 2 [id number] with mild hyperglycemia Osteoarthritis Rash resolved Prior history of smoking DVT prophylax with heparin subcu Hospital course Patient is a 89-year-old male with a known history of diabetes type 2 insulin-dependent, osteoarthritis, prostate disorder, prior history of smoking and chronic venous stasis changes in the legs and right leg wound presents to ER due to generalized weakness unable to get up and move around. Patient needs help to get out of bed and out of the wheelchair. Patient's states that she is unable to take care of him at home anymore. Patient went up to wound care center for wounds on his right lower extremity and they sent him down to ER because he did not feel safe sending him home. Patient initially was reluctant to go to rehab but is considering now. No complaints of fever or chills. No complaints of chest pain or shortness of breath. No nausea vomiting or blood pain or diarrhea. No dizziness or lightheadedness. Denied any recent illnesses. Patient does have chronic bilateral lower extremity swelling and venous stasis changes. Chest x-ray showed no acute cardiopulmonary process. EKG showed sinus rhythm with first-degree AV block. Laboratory data showed WBC 5.6 hemoglobin 12.5 platelets 144 MCV 94.4 Sodium 137 potassium 4.0 chloride 105 bicarb is 26 BUN 24 and creatinine 1.09 blood sugar 122 liver enzymes are not elevated troponin x 1 negative Urinalysis is negative for infection. 01/19/2025 Patient is sitting in the chair. Awake alert and oriented. No complaints of chest pain or shortness of breath. Leg swelling is better today. Patient also feels better with decreased weakness. No complaints of fever or chills. No other acute overnight issues. Wound care is being done. Patient will be continued on PT OT. Laboratories show sodium 140 potassium 4.3 chloride 107 bicarb is 23.1 BUN 23.4 and creatinine 1.2 calcium 8.4 vitamin B12 less than 150 and TSH 3.9 01/20/2025 Patient is sitting in the chair. Awake alert and oriented. No complaints of chest pain or shortness of breath. Bilateral lower extremity swelling is improved. Wound care was done. No complaints of dizziness or lightheadedness. Pain is controlled as well. PT OT to see him tomorrow. Laboratory data reviewed. Patient is being continued on B12 supplementation. No other acute overnight issues. 01/21/2025 Patient is currently sitting in the chair. Awake alert and oriented. No cough or sputum production. No febrile. Bilateral leg swelling is better. Patient is able to walk in the hallway but could not get out of the bed. PT OT is following. Patient may need rehab transfer. Laboratory data showed WBC 5.4 hemoglobin 11.3 and platelets 126. Other laboratory data reviewed. Patient is being continued on B12 supplementation. Continue with hypoglycemic medications and pain management. 01/22/2025 Patient is sitting in the chair. Awake alert and oriented. No complaints of chest pain or shortness of breath. No nausea vomiting abdominal pain. Patient did not have any bowel movement today. No cough or sputum production. Afebrile. Right lower extremity wound dressing to be done today. Blood sugar is controlled. Denied any complaints of pain. Patient is being discharged to rehab today. PHYSICAL EXAMINATION: Patient is sitting in the chair. no acute distress, awake alert and oriented.. HEENT: Normocephalic. Neck is supple. Pupils reactive. Nostrils clear. Oral cavity is moist. Neck reveals no JVD, carotid bruits, or thyromegaly. CHEST EXAMINATION: Trachea is central. Symmetrical expansion. Lung cueto clear to auscultation and percussion. CARDIAC: Normal S1, S2 with no gallops. No murmurs ABDOMEN: Soft. Bowel sounds normal. No organomegaly. No abdominal bruits. Extremities: Bilateral lower extremity 2+ edema with venous stasis and right lower extremity 4 x 4 centimeter venous stasis ulcer with a granulomatous base. No discharge.. No clubbing or cyanosis Neurologically awake, alert, oriented x3 able to move all extremities. no focal deficits noted Skin: No rash or skin lesions. Psychiatric: Coperative. Nonsuicidal Musculoskeletal: No joint swelling or deformity. Vital Signs - 24 hr 01/21/25 01/22/25 01/22/25 19:13 01:31 07:12 Temperature 98.4 F 98.3 F 97.9 F Pulse Rate [ 69 70 69 Pulse Oximetery ] Respiratory 16 16 16 Rate Blood Pressure 138/69 155/86 108/65 [Right Arm] O2 Sat by Pulse 99 95 97 Oximetry 01/22/25 12:13 Temperature 98.1 F Pulse Rate [ 68 Pulse Oximetery ] Respiratory 16 Rate Blood Pressure 105/58 [Right Arm] O2 Sat by Pulse 100 Oximetry Patient Condition at Discharge: Stable Plan - Discharge Summary Discharge Rx Participant: Yes New Discharge Prescriptions: New Cyanocobalamin [Vitamin B-12] 1,000 mcg PO DAILY #30 tab HYDROcodone/APAP 5-325MG [Ada 5-325] 1 each PO TID 3 Days #9 tab Continue glipiZIDE [Glucotrol XL] 10 mg PO DAILY Tamsulosin HCl [Flomax] 0.4 mg PO HS Ergocalciferol [Vitamin D2 (1250 Mcg = 62912 Iu)] 1,250 mcg PO YU Furosemide [Lasix] 20 mg PO DAILY Azo Bladder Control 1 tab PO DAILY Discharge Medication List Tamsulosin HCl [Flomax] 0.4 mg PO HS 05/27/17 [History] glipiZIDE [Glucotrol XL] 10 mg PO DAILY 05/27/17 [History] Azo Bladder Control 1 tab PO DAILY 01/18/25 [History] Ergocalciferol [Vitamin D2 (1250 Mcg = 14459 Iu)] 1,250 mcg PO YU 01/18/25 [History] Furosemide [Lasix] 20 mg PO DAILY 01/18/25 [History] Cyanocobalamin [Vitamin B-12] 1,000 mcg PO DAILY #30 tab 01/21/25 [Rx] HYDROcodone/APAP 5-325MG [Ada 5-325] 1 each PO TID 3 Days #9 tab 01/22/25 [Rx] Follow up Appointment(s)/Referral(s): Siva Ren MD [Primary Care Provider] - 01/28/25 1:00 pm (Office will contact if anything becomes available sooner. ) Discharge/Stand Alone Forms: Community Resources, Help In The Home, Personal Telecommunications Clerk Discharge Disposition: TRANSFER TO SNF/ECF
== END 2025-01-22 13:45 ==
LOC: EC 10:38 → 5NMEDONC 14:33
PROVIDERS: ADMIT Hospitalist; ATTEND Hospitalist
DX: R53.1 Weakness (principal); I87.311 Chronic venous hypertension (idiopathic) with ulcer of right lower extremity; I87.8 Other specified disorders of veins; E53.8 Deficiency of other specified B group vitamins; E11.65 Type 2 diabetes mellitus with hyperglycemia; M19.90 Unspecified osteoarthritis, unspecified site; R21 Rash and other nonspecific skin eruption; Z85.038 Personal history of other malignant neoplasm of large intestine; Z87.891 Personal history of nicotine dependence; Z79.82 Long term (current) use of aspirin; Z79.84 Long term (current) use of oral hypoglycemic drugs; Z79.899 Other long term (current) drug therapy
CPT/HCPCS: 96372 ×5; 96374; 99285; 36415; 94760; 93005; 97116; 97530; 97161; 97166; 82747; 80053; 80048 ×2; 84443; 82607; 83605; 83735; 84484; 85025 ×2; 81001; 83036; 71046; G0378 ×5; J3420; J1644 ×5; J1885

== ENCOUNTER → 2025-01-25 | Outpatient (CLI) | payer MEDICARE ==
--- NOTE | 2025-01-25 11:44 | US ---
EXAMINATION TYPE: US venous doppler duplex LE BI DATE OF EXAM: 01/25/2025 10:17 AM COMPARISON: NONE CLINICAL INDICATION: Male, 89 years old with history of I87.2; , Pain TECHNIQUE: The lower extremity deep venous system is examined utilizing real time linear array sonog chasidy with graded compression, color doppler sonography, and spectral doppler. SIDE PERFORMED: Bilateral FINDINGS: VESSELS IMAGED: Common Femoral Vein Deep Femoral Vein Greater Saphenous Vein * Femoral Vein Popliteal Vein Small Saphenous Vein * Proximal Calf Veins (* superficial vessels) Right Leg: Negative for DVT, Color Doppler imaging shows patency of the vessels. Spectral waveforms are within normal limits. Left Leg: Negative for DVT, Color Doppler imaging shows patency of the vessels. Spectral waveforms a re within normal limits. IMPRESSION: No ultrasound evidence for deep venous thrombosis or venous insufficiency. [facility], , 01/25/2025 11:42 AM
--- NOTE | 2025-01-25 11:46 | US ---
EXAMINATION TYPE: US arterial LE single level DATE OF EXAM: 01/25/2025 11:30 AM COMPARISONS: None. CLINICAL INDICATION: Male, 89 years old with history of I73.89; TECHNIQUE: Systolic pressures were taken of the upper and lower extremity arteries with ankle-brachia l indices and toe brachial indices calculated bilaterally. History of: Smoker: Yes Hypertension: No Diabetic: Yes Hyperlipidemia: No TIA/CVA: No Previous Vascular Surgery: No CAD: No PR: No Vascular Ulcers: Bilateral Claudication: Bilateral Gangrene: Bilateral FINDINGS: Doppler Waveforms: Right: Biphasic Left: Biphasic Brachial Artery systolic pressure: Right: 107 Left: 115 Posterior Tibial artery systolic pressure: Right: Unable to obtain. Left: Unable to obtain. Dorsalis Pedis artery systolic pressure: Right: Unable to obtain. Left: Unable to obtain. Toe artery systolic pressure: Right: 30 Left: 104 Ankle-Brachial Indices: Right: Unable to obtain. Left: Unable to obtain. Toe Brachial Indices: Right: 0.26 Left: 0.90 (Normal > 0.6; Mild 0.35 - 0.59, Moderate 0.12 - 0.34, Severe <0.12) Unable to obtain CARDIAC CATHETERIZATION TECHNICIAN and DP pressures due to sores. IMPRESSION: Unable to obtain ankle brachial indices due to limitations above. Moderate peripheral arterial vascul ar disease suggested within the right lower extremity based on toe brachial index. Normal left toe br achial index. Consider further evaluation with CTA runoff. [facility], , 01/25/2025 11:44 AM
== END | disposition home or self-care (01) ==
LOC: RADUSWWP 11:43
PROVIDERS: ATTEND Podiatrist
DX: I87.2 Venous insufficiency (chronic) (peripheral) (principal); I73.89 Other specified peripheral vascular diseases
CPT/HCPCS: 93922; 93970